=== PATIENT | female | born 1980 | race Caucasian/White ===

== ENCOUNTER 2019-07-04 13:21 | Emergency (ER) | payer MEDICAID ==
[~2019-07-04] VITALS: Ht 165.1 cm; Wt 52.4 kg
[2019-07-04 13:28] VITALS: Ht 165.1 cm; Wt 52.4 kg
[2019-07-04 15:10] LABS: APPEARANCE CLEAR (CLEAR); COLOR YELLOW (YELLOW)
[2019-07-04 15:11] LABS: BILIRUBIN NEGATIVE (NEGATIVE); GLUCOSE NEGATIVE (NEGATIVE); KETONE NEGATIVE (NEGATIVE); NITRITE NEGATIVE (NEGATIVE); PROTEIN NEGATIVE (NEGATIVE); UROBILINOGEN NORMAL (NORMAL)
[2019-07-04] MEDS ORDERED: NAPROSYN500 MG PO (15:21)
[2019-07-04] MEDS ORDERED: PREDNISONE20 MG PO (15:21)
[2019-07-04 15:32] VITALS: BP 118/72
== END 2019-07-04 15:33 | disposition home or self-care (01) ==
LOC: D.ER 13:21
PROVIDERS: Family Medicine
DX: M54.5 Low back pain (principal); M54.16 Radiculopathy, lumbar region; L93.0 Discoid lupus erythematosus; Z72.0 Tobacco use